=== PATIENT | male | born 1950 | race Caucasian/White ===

== ENCOUNTER 2022-02-07 10:23 | Observation (INO) ==
--- NOTE | 2022-01-10 11:35 | PAT Medication Instructions ---
Medication Instructions Date of Service January 10, 2022 Home Medications aspirin 81 mg tablet,delayed release 81 mg PO HS atorvastatin 40 mg tablet 40 mg PO QPM finasteride 5 mg tablet 5 mg PO QPM magnesium 250 mg tablet 250 mg PO Q2D metoprolol tartrate 25 mg tablet 25 mg PO QAM multivitamin 1 tab PO QAM omeprazole 20 mg capsule,delayed release 20 mg PO QAM ramipril 1.25 mg tablet 1.25 mg PO QAM tamsulosin 0.4 mg capsule 0.4 mg PO QAM DO NOT take the morning of surgery magnesium 250 mg tablet 250 mg PO Q2D multivitamin 1 tab PO QAM ramipril 1.25 mg tablet 1.25 mg PO QAM Take morning of surgery With a small sip of water, OTHERWISE NOTHING TO EAT OR DRINK AFTER MIDNIGHT: metoprolol tartrate 25 mg tablet 25 mg PO QAM omeprazole 20 mg capsule,delayed release 20 mg PO QAM tamsulosin 0.4 mg capsule 0.4 mg PO QAM Take evening before surgery aspirin 81 mg tablet,delayed release 81 mg PO HS (unless surgeon directs otherwise) atorvastatin 40 mg tablet 40 mg PO QPM finasteride 5 mg tablet 5 mg PO QPM Other Notes If you have any questions please call us at [phone] or [phone] or [phone] or [phone]
--- NOTE | 2022-01-14 13:11 | Anesthesiology Consultation ---
Date of Service January 14, 2022 Assessment & Plan (1) Encounter for pre-operative examination: Chart Review Chart Review: Acceptable Risk for Surgery (pending surgeon ordered PCP clearance and preop Covid testing results ) and Patient seen in Pre Admission Testing -Awaiting PCP clearance 01/20/22 (will send preop testing for PCP to review) Per PAT appt on 01/14/22, patient denies any recent travel or large group activit ies. No known Covid positive exposures or Covid related symptoms. No known Covid infection in the past 90 days. Pt is vaccinated for Covid. Preop Covid testing scheduled 02/05/22= will await results. Educated on importance of self quarantining, social distancing and wearing mask in public for the patient one week prior to surgery and after Covid testing done Patient last seen by cardiology 08/14/2021 = seen for follow-up on CAD. Patient with known history of CAD and cardiovascular risk factors. Over the past 12 months has been doing well clinically. No indication for invasive or noninvasive cardiac testing or procedures. Most recent assessment of LV systolic function was by echo done 2019. LV systolic function of the time was mild to moderately reduced with EF of 42%. No signs or symptoms of decompensated heart failure. Follow-up in 1 year. History Surgery Operation Date: 02/07/22 07:15 Proposed Procedures p Left Posterior Tibial Tendon Reconstruction, Flexor Digitorum Longus Tendon Transfer, - DO feliberto Magdaleno Medializing Calcaneal Osteotomy, Lateral Column Lengthening with Autograft, - DO feliberto Magdaleno Percutaneous Achilles Tendon Lengthening, - DO feliberto Magdaleno Iliac Crest Autograft [place] - Miguelito Petty DO Height/Weight Height: 5 ft 8 in Weight: 70.4 kg Allergies Allergy/AdvReac Type Severity Reaction Status Date / Time No Known Allergies Allergy Verified 01/09/22 14:32 Medications Home Medications Medication Instructions Recorded Confirmed Last Taken aspirin 81 mg tablet,delayed 81 mg PO HS 01/09/22 01/09/22 Unknown release atorvastatin 40 mg tablet 40 mg PO QPM 01/09/22 01/09/22 Unknown finasteride 5 mg tablet 5 mg PO QPM 01/09/22 01/09/22 Unknown magnesium 250 mg tablet 250 mg PO Q2D 01/09/22 01/09/22 Unknown metoprolol tartrate 25 mg tablet 25 mg PO QA 01/09/22 01/09/22 Unknown multivitamin 1 tab PO QA 01/09/22 01/09/22 Unknown omeprazole 20 mg capsule,delayed 20 mg PO QA 01/09/22 01/09/22 Unknown release ramipril 1.25 mg tablet 1.25 mg PO QAM 01/09/22 01/09/22 Unknown tamsulosin 0.4 mg capsule 0.4 mg PO QA 01/09/22 01/09/22 Unknown Past Medical History Medical History CAD (coronary artery disease) s/p CABG 3 vessel in 2019 Enlarged prostate GERD (gastroesophageal reflux disease) Well controlled and stable History of anesthesia reaction WITH SHOULDER SX ..DAY AFTER SURGERY...TONGUE FELT ENLARGED PT WAS TOLD THEY FELT THIS WAS DUE TO TOO MUCH ANESTHESIA ([facility] 2008) AFTER TRIPLE BYPASS - COULDN'T URINATE - CATHETER FOR MONTHS POST OP Ischemic cardiomyopathy Ischemic dilated CM due to CAD per cardio records Exercise / Class Metabolic Activity II 4-5 Yardwork/Stairs/Walk up hill (one filght of stiars - no chest pain or SOB ) Past Family History Family History Mother Family history of diabetes mellitus Past Surgical History Surgical History History of appendectomy History of cardiac cath 2019- [facility] ...TRIPLE BYPASS SURGERY History of heart bypass surgery SOB...ABNORMAL STRESS TEST, FAILED HEART CATH...TRIPLE BYPASS 2019 ( [facility] ) History of hernia surgery AN INFANT History of repair of right rotator cuff Past Anesthesia History No Hx of Anesthesia Complications (with exception to tongue swelling with shoulder surgery in 2008- no issues since that time; post op urination issues with CABG in 2019) and No Family Hx of Anesthesia Complications History of PONV No Hx of PONV and No Hx of Motion Sickness Social History Smoking Status: Never smoker Do You Dip or Chew Tobacco: No Hx Alcohol Use: Yes alcohol intake frequency: holidays/special occasions only substance use type: does not use Review of Systems Hx of snoring - hx of occ witnessed apnea. No hx of sleep study Patient denies chest pain, shortness of breath, dyspnea on exertion, cough, wheezing, palpitations. No hx of seizures, stroke. No hx of blood clots or blood transfusions Physical Exam Vital Signs VITALS BP 132/71 P 63 TEMP 97.7 SP02 96% RESP 16 Constitutional no acute distress ENMT Mouth: no TMJ clicking Thyromental Distance: > or= 3.5 Finger Breadths (3.5) Mallampati Class: II Missing molar Neck + limited neck extension (minimal ) Respiratory normal respiratory effort; no respiratory distress Auscultation: lungs clear to auscultation bilaterally; no wheezes Cardiovascular Rate/Rhythm: regular rate and regular rhythm Heart Sounds: no murmur Vessels: no carotid bruit Musculoskeletal Spine: no pain with cervical ROM Extremities: extremities normal to inspection Psychiatric Orientation: alert Lab Results Anesthesia Preop Results Results Anesthesia Widget: WBC 5.52 K/uL (4.8-10.8) 01/14/22 Hgb 15.0 g/dL (14.0-18.0) 01/14/22 Hct 44.6 % (42-52) 01/14/22 Plt 185 K/uL (130-400) 01/14/22 Na 138 mmol/L (136-145) 01/14/22 K 5.2 mmol/L (3.5-5.1) H 01/14/22 Cl 104 mmol/L (98-107) 01/14/22 CO2 29 mmol/L (21-32) 01/14/22 BUN 18 mg/dl (6-23) 01/14/22 Creat 0.87 mg/dl (0.6-1.4) 01/14/22 Glucose Level 95 mg/dl (70-99(Fasting)) 01/14/22 PT 10.0 Seconds (9.0-12.0) 01/14/22 PTT 27.8 Seconds (21.0-31.0) 01/14/22 INR 1.0 (0.9-1.1) 01/14/22 Urine Color Yellow 01/14/22 Urine Appearance Cloudy (Clear) A 01/14/22 Urine pH 5.5 (4.5-7.5) 01/14/22 Urine Specific Raymond 1.019 (1.000-1.030) 01/14/22 Urine Protein Negative (Negative) 01/14/22 Urine Glucose (UA) Negative (Negative) 01/14/22 Urine Ketones Trace (Negative) H 01/14/22 Urine Blood Trace (Negative) H 01/14/22 Urine Nitrite Positive (Negative) A 01/14/22 Urine Bilirubin Negative (Negative) 01/14/22 Urine Urobilinogen Negative (Negative) 01/14/22 Urine Leukocyte Esterase 3+ (Negative) H 01/14/22 Urine WBC (Auto) >30 /hpf (0-5) H 01/14/22 Urine RBC (Auto) 0-4 /hpf (0-4) 01/14/22 Urine Hyaline Casts (Auto) 1-5 /lpf (0-5) 01/14/22 Urine Epithelial Cells (Auto) 5-10 /lpf (0-5) H 01/14/22 Urine Bacteria (Auto) 4+ (Negative) H 01/14/22 Lab Comments: Surgeon's office informed of UA results Testing Electrocardiogram Date: 08/14/21 Sinus rhythm with occasional ectopic ventricular beat at 63 bpm. Old inferior infarct (EKG done at cardio appt - "No indication for invasive or noninvasive cardiac t esting or procedures" per 08/14/21 cardio note) Chest X-Ray Date: 01/14/22 Findings: + NAD FINDINGS: The lungs are hyperexpanded with apical predominant emphysematous changes. The heart is top normal in size. There are poststernotomy changes. Mild dextroscoliosis of the thoracic spine. The lungs are clear. No pleural effusions. No pneumothorax. Echocardiogram Date: 07/18/20 EF: 42% LV is moderately dilated with regional wall motion abnormalities. Basal inferior septal LV wall motion is hypokinetic. Mild inferior septal LV wall motion is hypokinetic. Mildly dilated left atrium. RV is normal in size and function. Mild to moderate MR. Cardiac Catheterization Date: 02/18/19 LM = angiographically normal LAD = proximal 80% tandem lesions, mid 70%, distal 0%. Proximal first diagonal, 99%. Left circumflex = mid 50% lesion. Obtuse marginals with no hemodynamically significant lesions RCA = dominant vessel with 100% occlusion. [id number] collaterals LVEF 40%. Basal inferior wall akinesis, mid to distal inferior wall hypokinesis. Impression: Multivessel CAD. Referred to cardiothoracic surgery for evaluation for CABG.
--- NOTE | 2022-02-06 08:38 | History & Physical Report ---
Date of Service February 06, 2022 Assessment & Plan (1) Posterior tibial tendon dysfunction, left: Plan: Schedule a left posterior tibialis tendon reconstruction with flexor digitorum longus tendon transfer, medializing calcaneal osteotomy, lateral column lengthening with autograft, left iliac crest bone graft harvest, percutaneous tendo Achilles lengthening for 02/07/2022. All potential risks, benefits, complications, alternatives, and rehab have been discussed with the patient and he wishes to proceed. Plan for aspirin 81 mg twice daily x4 weeks for postop DVT prophylaxis. (2) Acquired pes planovalgus of left foot: (3) Contracture of left Achilles tendon: History of Present Illness Chief Complaint: Left foot pain and deformity Primary Care Provider: NO PCP This is a patient with a long history of a left flatfoot deformity. He has been treated conservatively for posterior tibialis tendon dysfunction. However, he is failed conservative management and his pain and flatfoot deformity has worsened. He is now being set up for surgical treatment. Allergies Allergy/AdvReac Type Severity Reaction Status Date / Time No Known Allergies Allergy Verified 01/09/22 14:32 Home Medications Medication Instructions Recorded Confirmed Type aspirin 81 mg tablet,delayed 81 mg PO HS 01/09/22 01/09/22 History release atorvastatin 40 mg tablet 40 mg PO QPM 01/09/22 01/09/22 History finasteride 5 mg tablet 5 mg PO QPM 01/09/22 01/09/22 History magnesium 250 mg tablet 250 mg PO Q2D 01/09/22 01/09/22 History metoprolol tartrate 25 mg tablet 25 mg PO QAM 01/09/22 01/09/22 History multivitamin 1 tab PO QAM 01/09/22 01/09/22 History omeprazole 20 mg capsule,delayed 20 mg PO QAM 01/09/22 01/09/22 History release ramipril 1.25 mg tablet 1.25 mg PO QAM 01/09/22 01/09/22 History tamsulosin 0.4 mg capsule 0.4 mg PO QAM 01/09/22 01/09/22 History Past Med/Surg History Medical History CAD (coronary artery disease) s/p CABG 3 vessel in 2019 Enlarged prostate GERD (gastroesophageal reflux disease) Well controlled and stable History of anesthesia reaction WITH SHOULDER SX ..DAY AFTER SURGERY...TONGUE FELT ENLARGED PT WAS TOLD THEY FELT THIS WAS DUE TO TOO MUCH ANESTHESIA ([facility] 2008) AFTER TRIPLE BYPASS - COULDN'T URINATE - CATHETER FOR MONTHS POST OP Ischemic cardiomyopathy Ischemic dilated CM due to CAD per cardio records Surgical History History of appendectomy History of cardiac cath 2019- [facility] ...TRIPLE BYPASS SURGERY History of heart bypass surgery SOB...ABNORMAL STRESS TEST, FAILED HEART CATH...TRIPLE BYPASS 2019 ( [facility] ) History of hernia surgery AN INFANT History of repair of right rotator cuff Family History Mother Family history of diabetes mellitus Social History Smoking Status: Never smoker Hx Alcohol Use: Yes Preferred Language: Indonesian Communication Ability: Effective Risk Management Manager Required: No Beliefs That Will Affect Care: Mormonism Mormonism Beliefs: SABIANISM Current Living Situation: Spouse Feels Safe at Home: Yes Assistive Devices: None Physical Exam Constitutional: well developed and well nourished; no acute distress ENMT: external ear and nose normal, oropharynx normal Neck: trachea midline Respiratory: normal respiratory effort, lungs clear to auscultation Cardiovascular: Rate/Rhythm: regular rate and regular rhythm Gastrointestinal (Abdomen): normal bowel sounds, soft, nontender, no hepatosplenomegaly Musculoskeletal: Ankle: + deformity (Left pes planovalgus) and + joint line tenderness (ankle) (Left posterior tibialis tendon, sinus Tarsi); no skin erythema and no ecchymosis Skin: no rashes, warm and dry Trauma: no evidence of skin trauma Neurologic: normal touch/pain/proprioception Psychiatric: A+Ox3, euthymic affect Speech: normal rate/rhythm/volume of speech Lymphatic: no cervical or axillary lymphadenopathy
[~2022-02-07 10:23] MED LIST: BUPIVACAINE 0.25% 30 ML VIAL ONE; EPINEPHrine INJ 1 MG/ML AMP ONE; LACTATED RINGER'S 1,000 ML IV SCH; ceFAZolin 1000MG 1,000 MG/7.5 ML SYR IV SCH
--- NOTE | 2022-02-07 11:19 | History & Physical Bridge Note ---
Date of Service February 07, 2022 History & Physical Bridge Note I have examined the patient, reviewed the History & Physical and in the interval since the performance of the History & Physical I have noted the following changes of clinical significance: no changes noted
[2022-02-07] MEDS ORDERED: fentaNYL citrate 100 MCG/2 ML VIAL ONE ×3 (11:20→14:47)
[2022-02-07] MEDS ORDERED: MIDAZOLAM HCL 1 MG/ML 2ML VIAL ONE (11:20)
[2022-02-07] MEDS ORDERED: HYDROmorphone INJ 2 MG/ML SYR/VIAL IV PRN (11:24)
[2022-02-07] MEDS ORDERED: ATROPINE SULFATE 0.1 MG/ML 10ML SYR IV PRN (11:24)
[2022-02-07] MEDS ORDERED: ONDANSETRON INJ 2 MG/ML 2 ML VIAL IV PRN ×2 (11:24→16:34)
[2022-02-07] MEDS ORDERED: ePHEDrine sulfate 50 MG/ML AMP IV PRN (11:24)
[2022-02-07] MEDS ORDERED: fentaNYL citrate 100 MCG/2 ML VIAL IV PRN (11:24)
[2022-02-07] MEDS ORDERED: THROMBIN 5000 UNITS KIT ONE (11:59)
[2022-02-07] MEDS ORDERED: BUPIVACAINE 0.5 % 5 MG/1 ML MPF 30ML VIAL ONE (11:59)
[2022-02-07] MEDS ORDERED: EPINEPHrine INJ 1 MG/ML AMP ONE (11:59)
[2022-02-07] MEDS ORDERED: GELATIN SPONGE SZ 100 ONE (12:00)
[2022-02-07] MEDS ORDERED: THROMBIN FOR SOLN 20000 UNIT KIT ONE (12:03)
[2022-02-07] MEDS ORDERED: BUPIVACAINE/EPINEPHRINE 0.25% 1:200,000 30 ML VIAL ONE (12:03)
[2022-02-07] MEDS: ceFAZolin 330 MG/ML 1 GM VIAL ONE ×2 (12:29→14:52)
[2022-02-07] MEDS ORDERED: ePHEDrine sulfate 50 MG/ML AMP ONE (13:34)
[2022-02-07] MEDS ORDERED: DEXAMETHASONE SOD INJ 4 MG/ML VIAL ONE (13:35)
[2022-02-07] MEDS ORDERED: ceFAZolin 330 MG/ML 1 GM VIAL ONE (13:35)
[2022-02-07] MEDS ORDERED: ONDANSETRON INJ 2 MG/ML 2 ML VIAL ONE (13:35)
[2022-02-07] MEDS ORDERED: LIDOCAINE 2% 2 ML VIAL/AMP(20MG/ML) INFIL ONE (13:35)
[2022-02-07] MEDS ORDERED: PROPOFOL IV EMULSION 10 MG/ML 20 ML VIAL IV ONE (13:35)
[2022-02-07] MEDS ORDERED: MoRPHine SULFATE 2 MG/ML CARP ONE (13:42)
[2022-02-07] MEDS ORDERED: MoRPHine SULFATE 2 MG/ML CARP IV STA (13:44)
--- NOTE | 2022-02-07 14:06 | Fluoroscopy Report ---
FL foot LT 2V HISTORY: 71 years-old Male LT CALCANEAL OSTEOTOMY COMPARISON: None TECHNIQUE: 2 spot fluoroscopic images of the left foot were obtained utilizing 10.1 seconds fluorosco py time FINDINGS: Status post calcaneal osteotomy. Large posterior approach cannulated screw traverses the mid calcaneu s. Additionally, there is an anterior approach smaller cannulated screw which appears to traverse the anterior calcaneal process. Hardware appears intact. There are 3 posterior skin baldev. Expected po stoperative soft tissue swelling with deep tissue air. Osteoarthritis of the midfoot, hindfoot and ti biotalar joint. IMPRESSION: Fluoroscopic assistance as above. ACT 112: Negative or not required by law. The above report was generated using voice recognition software. It may contain grammatical, syntax o r spelling errors. Electronically signed by: Tian Huff M.D. 02/07/2022 2:04 PM
--- NOTE | 2022-02-07 15:28 | Post Operative Brief Note ---
Immediate Post Op Note v1 Date of Surgery February 07, 2022 Pre & Post Diagnosis Operation Date: 02/07/22 11:55 Pre-Op Diagnosis: (1) Posterior tibial tendon dysfunction, left: (2) Acquired pes planovalgus of left foot: (3) Contracture of left Achilles tendon: (4) posterior tibial tendon tear Post-Op Diagnosis: (1) Posterior tibial tendon dysfunction, left: (2) Acquired pes planovalgus of left foot: (3) Contracture of left Achilles tendon: (4) posterior tibial tendon tear (5) Spring ligament complex tear I identified the patient and participated in the time-out.: Yes Procedure Operation Date: 02/07/22 11:55 Actual Procedures p 1. Left Posterior Tibial Tendon Reconstruction with Flexor Digitorum Longus Tendon Transfer,(Left) - DO feliberto Magdaleno 2. Medializing Calcaneal Osteotomy with screw fixation 3. Lateral Column calcaneal lengthening with Autograft, - DO feliberto Magdaleno 4. Percutaneous Achilles Tendon Lengthening,(Left) - DO feliberto Magdaleno 5. Spring ligament complex repair 6. Iliac Crest Autograft [place](Left) - Miguelito Petty DO Surgeon Miguelito Petty DO Lathing Supervisor Master Amanda PA-C Estimated Blood Loss 10 Findings Consistent with Post-Op Diagnosis Anesthesia Type General Regional Complications none Disposition Accompanied Patient To Recovery: No
--- NOTE | 2022-02-07 16:21 | Operative Report (OR) ---
DATE OF PROCEDURE: 02/07/2022. PREOPERATIVE DIAGNOSES: 1. 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 2. Acquired painful pes planovalgus deformity. 3. Achilles tendon contracture. 4. Posterior tibial tendon tear. POSTOPERATIVE DIAGNOSES: 1. 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 2. Acquired painful pes planovalgus deformity. 3. Achilles tendon contracture. 4. Posterior tibial tendon tear. 5. Spring ligament complex tear. PROCEDURES PERFORMED: 1. Left posterior tibial tendon reconstruction with flexor digitorum longus tendon transfer. 2. Medialized and calcaneal osteotomy with screw fixation. 3. Lateral column calcaneal lengthening with autograft. 4. Percutaneous tendo-Achilles lengthening. 5. Spring ligament complex repair. 6. Left iliac crest autograft harvest. SURGEON: Miguelito Petty DO. [employer]: Master Amanda PA-C who was present for patient positioning, sterile prep and drape, management of retractors and instruments. He was present through the critical portions of the case including wound closure, application of sterile dressing and transport of the patient to recovery. ANESTHESIA: General, regional. SPECIMENS: None. DRAINS: None. COMPLICATIONS: None. BLOOD LOSS: 10 mL. PERTINENT HISTORY: This is a 71-year-old gentleman who had severe pain along the medial aspect of his hindfoot with a rapid loss of his medial arch over a period of about 6 months. He attempted and failed conservative management including physical therapy, shoewear modification, activity modification, use of a shoe insert, use of brace, anti-inflammatories, rest, and modification of activities. The patient had radiographs and an MRI, which demonstrated a posterior tibial tendon dysfunction grade II with a posterior tibial tendon tear and clinical examination demonstrating Achilles tendon contracture. The patient was scheduled for surgery as indicated. All potential risks, benefits, complications, alternatives, rehab potential for incomplete relief of symptoms, need for further surgery, DVT, PE, , persistent pain, swelling, scarring, weakness, neurovascular injury, wound complications, hardware failure, nonunion, malunion, bone fracture were discussed with the patient. The patient decided to proceed with the procedure as indicated. DESCRIPTION OF PROCEDURE: The patient was taken to the operative suite. The consent was reviewed and surgical site was identified. The patient had undergone a general, regional anesthetic and then transferred to the Operating Room table. Tourniquet was placed high in the left thigh over cast padding. Left iliac crest and left lower extremity were then sterilely prepped and draped in usual fashion. The left lower extremity was then elevated and exsanguinated with Esmarch bandage, tourniquet inflated to 350 mmHg. Next, left foot was held in dorsiflexion. An 11 blade scalpel was used to perform a three part percutaneous tendo Achilles lengthening and then the small stab incisions were then closed with a skin stapler. Next, a 15 blade scalpel was used to make an incision in oblique fashion on the lateral aspect of the left calcaneus. The incision was deepened to subcutaneous tissue. Meticulous hemostasis with electrocautery. Full thickness flaps were developed. Next, periosteum was elevated with small periosteal elevator. Hohmann retractors were placed and a sagittal saw was used to perform the osteotomy in the posterior aspect of the calcaneus. Tuberosity was then shifted medially and then stabilized with a guide pin from the 7.3 mm cannulated screw set under fluoroscopic control. Next, a short thread 7.3 mm cannulated screw of appropriate length was then placed over the guide pin and then used to compress the osteotomy under fluoroscopic control. Next, the guide pin was removed. The wound was irrigated with sterile Normal Saline and the dermis was closed using buried 3-0 Vicryl sutures and the skin was closed using 4-0 Nylon. Next, a 15 blade scalpel incision was made over the anterior process of the calcaneus and lateral calcaneus, the incision deepened through subcutaneous tissue, meticulous hemostasis with electrocautery. The extensor digitorum brevis was identified, incised and then elevated both superiorly and inferiorly. Peroneal tendon sheath was elevated and Hohmann retractors were placed in the sinus tarsi and then the inferior aspect of the calcaneus. A sagittal saw was used to make an osteotomy approximately 1.5 cm proximal to the calcaneal cuboid joint. Smooth osteotomes were placed into the osteotomies to open the osteotomy site and then a cervical lamina obstetric anaesthetist was placed in the opening. The opening of appropriate width was then measured and the cervical lamina obstetric anaesthetist was then removed from the osteotomy and a moist lap was placed over the foot. Next, after injection of the left iliac crest with approximately 15 cc of 0.5% Marcaine with Epinephrine a 15 blade scalpel incision was made over the iliac crest approximately 1 cm proximal to the ASIS. This was deepened to subcutaneous tissue with electrocautery down to the level of the fascia. Fascia was incised in line with the skin incision and then the iliac crest was clearly visualized, soft tissue and fascia was elevated medially and laterally. Small Matias retractors were placed in the inner and outer table of the iliac crest. It was irrigated with sterile Normal Saline. Appropriate length of bone wedge was measured and marked with electrocautery and then a sagittal saw was used to resect the appropriate width trapezoidal tricortical graft from the pelvis. Next, after irrigation and suction the graft was then placed on the back table and a small amount of cancellous graft was excised from the iliac crest. The wound was then finally irrigated with Sterile Normal Saline. The defect in the iliac crest was then packed with Gelfoam and Thrombin. This was then closed with the fascia overlying the iliac crest with #1 Vicryl sutures. Next, this was injected with 1 cc of Duramorph and 5 cc of 0.5% Marcaine with Epinephrine. The dermis was closed using buried interrupted 2-0 Vicryl sutures and the skin was closed using skin baldev. Approximately 5 more cc of 0.5% Marcaine with Epinephrine was injected. No oozing or bleeding was encountered and a sterile compressive dry dressing was applied overwrapped with an OpSite. Next, the graft was then placed in the lateral osteotomy of the foot to lengthen the lateral column using a cervical lamina obstetric anaesthetist to span the osteotomy. After the graft was tamped in place with a bone tamp and mallet the cervical lamina obstetric anaesthetist was removed. Next, the adjacent bone graft obtained from the iliac crest was then packed around the tricortical graft and then the graft was then stabilized with a single fully threaded 4.0 mm small fragment screw placed under lag technique compressing the graft in place. Next, the 2-0 Vicryl suture was used to close the extensor digitorum brevis and the dermis was closed using buried interrupted 3-0 Vicryl. Skin was closed using 4-0 Nylon sutures. Next, a 15 blade scalpel was used to make a long curvilinear incision along the medial aspect of the hind foot overlying the posterior tibial tendon. The incision was deepened to subcutaneous tissue. Meticulous hemostasis achieved with electrocautery. The incision was extended to the first metatarsal head. Next, after incision of the lacinate ligament the flexor retinaculum was encountered. This was incised in line with skin incision overlying the posterior tibial tendon. The posterior tibial tendon was clearly visualized. Tenotomy scissors were then used to complete the release of the flexor retinaculum and the posterior tibial tendon was then elevated sharply with combination of electrocautery and 15 blade scalpel from its insertion on the navicular. The damaged portion of the tendon distally was then resected and then a whip stitch was placed with #2 FiberWire suture in the distal aspect of the posterior tibial tendon. Next, dissection was continued in the mid foot in the interval between the first metatarsal and the abductor hallucis. A Carlos retractor was placed in the wound and then after careful dissection the master knot of Roby was released and the flexor digitorum longus and flexor hallucis longus were clearly visualized distally. Tenodesis was performed with interrupted #2 FiberWire suture with toes held in neutral alignment in line with the metatarsals. Next, a whip stitch was placed in the distal aspect of the FDL tendon and then the FDL was then released distally to allow it to be retracted proximally posterior to the medial malleolus after a small cut was made in the FDL sheath posterior to the medial malleolus. After the tendon was withdrawn posteriorly, the soft tissues were elevated from the medial navicular and a 4.5 mm drill hole was made in the medial navicular. The spring ligament along the medial aspect of the talonavicular joint and the medial hindfoot was noted to be completely ruptured and this was then debrided with a 15 blade scalpel and then reapproximated with buried interrupted #2 FiberWire suture. A Irwin suture passer was used to transfer the tendon from the plantar to the dorsal aspect of the navicular. It was then sutured back down to itself using a sharp tendon passer and a Pulvertaft weave technique with #2 fiber wire suture. Several passes were made and then this was then incorporated into the posterior tibial tendon. Next, free needle was used to tie the ends of the posterior tibial tendon and FDL tendon into the adjacent tendons. Sutures were then tied and cut. The wound was irrigated with Sterile Normal Saline. Deep drain was placed, a #10 Samoan single Hemovac drain medially and then the flexor sheath was closed using interrupted 2-0 Vicryl sutures. The interval between the first metatarsal and the abductors were closed using interrupted 2-0 Vicryl sutures. The dermis was closed using buried interrupted 3-0 Vicryl suture and skin closed with 4-0 Nylon. A sterile compressive Ming Meneses plaster splint was applied and wrapped with an Gavino wrap with the foot held in slight equinus and inversion. The tourniquet was released, patient awakened and taken to recovery in stable condition. Job ID: [id number] [facility]ITAL[facility]i
--- NOTE | 2022-02-07 16:30 | Anesthesiology Progress Note ---
Date of Service February 07, 2022 Anesthesia Post Procedure Vital Signs Vital Signs: Temp Pulse Resp BP Pulse Ox 02/07/22 16:15 36.6 C 70 16 127/62 96 02/07/22 16:05 71 18 120/78 95 02/07/22 15:55 71 18 125/61 95 02/07/22 15:45 67 18 118/60 98 02/07/22 15:35 71 18 118/60 98 02/07/22 15:28 36.6 C 67 18 117/56 L 98 02/07/22 10:46 36.4 C L 59 L 18 144/78 H 97 Transfer of Care Handoff Completed per policy Notes Mental Status: alert / awake / arousable Patient Amnestic to Procedure: Yes Nausea / Vomiting: adequately controlled Pain: adequately controlled Airway Patency, RR, SpO2: stable & adequate BP & HR: stable & adequate Hydration State: stable & adequate Anesthetic Complications: no major complications apparent
[2022-02-07] MEDS ORDERED: HYDROmorphone INJ 0.5 MG/0.5 ML SYR IV PRN (16:34)
[2022-02-07] MEDS ORDERED: NALOXONE HCL 0.4 MG/1 ML VIAL/CARP IV PRN (16:34)
[2022-02-07] MEDS ORDERED: oxyCODONE HCL IR 5 MG TAB (IMMEDIATE RELEASE) PO PRN (16:34)
[2022-02-07] MEDS ORDERED: bisacodyL 10 MG SUPP PR PRN (16:34)
[2022-02-07] MEDS ORDERED: MAGNESIUM HYDROXIDE SUSP 30 ML UDC PO PRN (16:34)
[2022-02-07] MEDS: SODIUM CHLORIDE 0.9% 1000ML 1,000 ML IV SCH (16:43)
[2022-02-07] MEDS ORDERED: MAGNESIUM OXIDE 400 MG TAB PO SCH (17:00)
[2022-02-07] MEDS: ASPIRIN 81 MG ECTAB PO SCH (20:46)
[2022-02-07] MEDS: DOCUSATE SODIUM 100 MG CAP PO SCH (20:46)
[2022-02-07] MEDS: ceFAZolin 1000MG 1,000 MG/7.5 ML SYR IV SCH (20:52)
[2022-02-07] MEDS ORDERED: SENNA 8.6 MG TAB PO SCH (21:00)
[2022-02-07] MEDS ORDERED: ATORVASTATIN 40 MG TAB PO SCH (21:00)
[2022-02-07] MEDS ORDERED: FINASTERIDE 5 MG TAB PO SCH (21:00)
[2022-02-07] MEDS: ACETAMINOPHEN 500 MG TAB PO SCH (21:00)
[2022-02-08] MEDS: SODIUM CHLORIDE 0.9% 1000ML 1,000 ML IV SCH (03:54)
[2022-02-08] MEDS: ACETAMINOPHEN 500 MG TAB PO SCH ×2 (06:17→14:10)
[2022-02-08] MEDS: ceFAZolin 1000MG 1,000 MG/7.5 ML SYR IV SCH (06:17)
[2022-02-08 08:12] LABS: Hematocrit (blood only) 36.6 % (42-52); Hemoglobin 12.8 g/dL (14.0-18.0); Mean Corpuscular Hemoglobin 31.6 pg (25-34); Mean Corpuscular Volume 90.4 fL (80-100); Mean Platelet Volume 9.7 fL (7.4-10.4); Platelet Count 171 K/uL (130-400); RDW Coefficient of Variation 13.2 % (11.5-14.5); RDW Standard Deviation 43.4 fL (36.4-46.3); Red Blood Count 4.05 M/uL (4.7-6.1); White Blood Count 12.91 K/uL (4.8-10.8)
[2022-02-08] MEDS: DOCUSATE SODIUM 100 MG CAP PO SCH (08:20)
[2022-02-08] MEDS: ASPIRIN 81 MG ECTAB PO SCH (08:20)
[2022-02-08 08:29] LABS: BUN Creatinine Ratio 14.3 (10-20); Calcium 8.2 mg/dl (8.5-10.1); Creatinine Clr Calc Pharmacy 68.8 ml/min; Est GFR (African American) 102.8 ml/min; Est GFR (Non-African American) 88.7 ml/min; Potassium 3.9 mmol/L (3.5-5.1)
--- NOTE | 2022-02-08 08:53 | Orthopedic Progress Note ---
Date of Service February 08, 2022 Assessment & Plan (1) Posterior tibial tendon dysfunction, left: Plan: Postop day #1 1. Left posterior tibial tendon reconstruction with flexor digitorum longus tendon transfer. 2. Medialized and calcaneal osteotomy with screw fixation. 3. Lateral column calcaneal lengthening with autograft. 4. Percutaneous tendo-Achilles lengthening. 5. Spring ligament complex repair. 6. Left iliac crest autograft harvest. -PT/OT: Nonweightbearing left lower extremity -Pain management: As written -DVT prophylaxis: Aspirin 81 mg twice daily for 1 month postop. -A.m. labs: Hemoglobin 12.4 this morning. Mild leukocytosis likely reactive. Currently asymptomatic. -Discharge planning: Plan on discharge home today as long as he does well with therapy. 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 (2) Acquired pes planovalgus of left foot: (3) Contracture of left Achilles tendon: Admission and Anticipated Discharge Date Admission Date: February 07, 2022 Supervising Physician Co-Signing Physician Notes Patient seen and examined. Agree with DRE Hebert's note as above. Pain well controlled. Plan for discharge home today. Subjective Patient is postop day 1 left hindfoot reconstruction. He is doing well, pain is controlled. Blocks are to wear off earlier this morning and is having some increased pain. Patient has no other complaints. Denies any chest pain, shortness of breath, dizziness, headaches, nausea/vomiting/diarrhea. Review of Systems Review of Systems: All systems reviewed & are unremarkable except as noted in Subjective Physical Exam Physical Exam: Left leg: Dressings and splint are clean dry and intact. Toes are mobile. No calf tenderness. Distally neurovascular status and sensation are intact. Constitutional: WD/WN, vitals as above Results & Data ([facility]) Vital Signs (Past 12 Hours) Vital Signs Temp Pulse Pulse Resp BP Pulse Ox 02/08/22 07:15 36.9 C 82 18 115/60 96 02/08/22 03:26 37.0 C 78 16 107/66 96 02/07/22 23:02 36.8 C 82 18 128/71 96 Laboratory Results Lab Results 02/07/22 02/08/22 02/08/22 Range/Units Unknown 07:55 07:55 WBC 12.91 H (4.8-10.8) K/uL RBC 4.05 L (4.7-6.1) M/uL Hgb 12.8 L (14.0-18.0) g/dL Hct 36.6 L (42-52) % MCV 90.4 (80-100) fL MCH 31.6 (25-34) pg MCHC 35.0 (32-36) g/dL RDW Std Deviation 43.4 (36.4-46.3) fL RDW Coeff of Jes 13.2 (11.5-14.5) % Plt Count 171 (130-400) K/uL MPV 9.7 (7.4-10.4) fL Sodium 136 (136-145) mmol/L Potassium 3.9 (3.5-5.1) mmol/L Chloride 104 (98-107) mmol/L Carbon Dioxide 28 (21-32) mmol/L Anion Gap 4 (3-11) BUN 12 (6-23) mg/dl Creatinine 0.84 (0.6-1.4) mg/dl Est Cr Clr Drug Dosing 68.8 ml/min Est GFR ( Amer) 102.8 ml/min Est GFR (Non-Af Amer) 88.7 ml/min BUN/Creatinine Ratio 14.3 (10-20) Glucose 99 (70-99(Fasting)) mg/dl Calcium 8.2 L (8.5-10.1) mg/dl SARS-CoV-2, RNA, NAAT NEGATIVE (NEGATIVE)
[2022-02-08] MEDS ORDERED: ENALAPRIL MALEATE 5 MG TAB PO SCH (09:00)
[2022-02-08] MEDS ORDERED: PANTOprazole 40 MG TAB PO SCH (09:00)
[2022-02-08] MEDS ORDERED: MULTIVITAMIN TAB PO SCH ×2 (09:00)
[2022-02-08] MEDS ORDERED: TAMSULOSIN HCL 0.4 MG CAP PO SCH (09:00)
[2022-02-08] MEDS ORDERED: METOPROLOL TARTRATE 25 MG TAB PO SCH (09:00)
--- NOTE | 2022-02-11 08:53 | Discharge Summary ---
Date of Service February 11, 2022 Admission HPI Per Admitting Provider This is a patient with a long history of a left flatfoot deformity. He has been treated conservatively for posterior tibialis tendon dysfunction. However, he is failed conservative management and his pain and flatfoot deformity has worsened. He is now being set up for surgical treatment. Admission Exam Per Admitting Provider Physical Exam Constitutional: well developed and well nourished; no acute distress ENMT: external ear and nose normal, oropharynx normal Neck: trachea midline Respiratory: normal respiratory effort, lungs clear to auscultation Cardiovascular:L Rate/Rhythm: regular rate and regular rhythm Gastrointestinal (Abdomen): normal bowel sounds, soft, nontender, no hepatosplenomegaly Musculoskeletal: Ankle: + deformity (Left pes planovalgus) and + joint line tenderness (ankle) (Left posterior tibialis tendon, sinus Tarsi); no skin erythema and no ecchymosis Skin: no rashes, warm and dry Trauma: no evidence of skin trauma Neurologic: normal touch/pain/proprioception Psychiatric: A+Ox3, euthymic affect Speech: normal rate/rhythm/volume of speech Lymphatic: no cervical or axillary lymphadenopathy Principal Diagnosis 1. 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 2. Acquired painful pes planovalgus deformity. 3. Achilles tendon contracture. 4. Posterior tibial tendon tear. 5. Spring ligament complex tear. Discharge Data Allergies Allergy/AdvReac Type Severity Reaction Status Date / Time No Known Allergies Allergy Verified 02/07/22 10:53 Procedures Performed Operation Date: 02/07/22 11:55 Actual Procedures p Left Posterior Tibial Tendon Reconstruction, Flexor Digitorum Longus Tendon Transfer, Spring Tendon Repair(Left) - Miguelito Petty DO s Medializing Calcaneal Osteotomy, Lateral Column Lengthening with Autograft, - Miguelito Petty DO s Percutaneous Achilles Tendon Lengthening,(Left) - DO feliberto Magdaleno Iliac Crest Autograft Varney(Left) - Miguelito Petty DO Ordered Studies 02/07/22 05:00 US - OR guided needle placemen Routine 02/07/22 11:55 FL foot LT 2V Routine Hospital Course (1) Posterior tibial tendon dysfunction, left: Assessment & Plan (1) Posterior tibial tendon dysfunction, left: Plan: Postop day #1 1. Left posterior tibial tendon reconstruction with flexor digitorum longus tendon transfer. 2. Medialized and calcaneal osteotomy with screw fixation. 3. Lateral column calcaneal lengthening with autograft. 4. Percutaneous tendo-Achilles lengthening. 5. Spring ligament complex repair. 6. Left iliac crest autograft harvest. -PT/OT: Nonweightbearing left lower extremity -Pain management: As written -DVT prophylaxis: Aspirin 81 mg twice daily for 1 month postop. -A.m. labs: Hemoglobin 12.4 this morning. Mild leukocytosis likely reactive. Currently asymptomatic. -Discharge planning: Plan on discharge home today as long as he does well with therapy. 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 (2) Acquired pes planovalgus of left foot: (3) Contracture of left Achilles tendon: Admission and Anticipated Discharge Date Admission Date: February 07, 2022 Supervising Physician Co-Signing Physician Notes Patient seen and examined. Agree with DRE Hebert's note as above. Pain well controlled. Plan for discharge home today. Subjective Patient is postop day 1 left hindfoot reconstruction. He is doing well, pain is controlled. Blocks are to wear off earlier this morning and is having some increased pain. Patient has no other complaints. Denies any chest pain, shortness of breath, dizziness, headaches, nausea/vomiting/diarrhea. Review of Systems Review of Systems: All systems reviewed & are unremarkable except as noted in Subjective Physical Exam Physical Exam: Left leg: Dressings and splint are clean dry and intact. Toes are mobile. No calf tenderness. Distally neurovascular status and sensation are intact. Constitutional: WD/WN, vitals as above Results & Data ([facility]) Vital Signs (Past 12 Hours) Vital Signs Temp Pulse Pulse Resp BP Pulse Ox 02/08/22 07:15 36.9 C 82 18 115/60 96 02/08/22 03:26 37.0 C 78 16 107/66 96 02/07/22 23:02 36.8 C 82 18 128/71 96 Laboratory Results Lab Results 02/07/22 02/08/22 02/08/22 Range/Units Unknown 07:55 07:55 WBC 12.91 H (4.8-10.8) K/uL RBC 4.05 L (4.7-6.1) M/uL Hgb 12.8 L (14.0-18.0) g/dL Hct 36.6 L (42-52) % MCV 90.4 (80-100) fL MCH 31.6 (25-34) pg MCHC 35.0 (32-36) g/dL RDW Std Deviation 43.4 (36.4-46.3) fL RDW Coeff of Jes 13.2 (11.5-14.5) % Plt Count 171 (130-400) K/uL MPV 9.7 (7.4-10.4) fL Sodium 136 (136-145) mmol/L Potassium 3.9 (3.5-5.1) mmol/L Chloride 104 (98-107) mmol/L Carbon Dioxide 28 (21-32) mmol/L Anion Gap 4 (3-11) BUN 12 (6-23) mg/dl Creatinine 0.84 (0.6-1.4) mg/dl Est Cr Clr Drug Dosing 68.8 ml/min Est GFR ( Amer) 102.8 ml/min Est GFR (Non-Af Amer) 88.7 ml/min BUN/Creatinine Ratio 14.3 (10-20) Glucose 99 (70-99(Fasting)) mg/dl Calcium 8.2 L (8.5-10.1) mg/dl SARS-CoV-2, RNA, NAAT NEGATIVE (NEGATIVE) Total Time Total Time Spent Total Time Spent (In Minutes): 5 Discharge Plan Discharge Items Patient Disposition: Home - Self-Care Reason For Visit: Left Posteior Tibial Tendon Dysfunction Discharge Diagnosis: Left posterior tibial tendon dysfunction Activity: Per Instructions section Non-emergency contact: Surgeon Call non-emergency contact if: your pain is not controlled, your pain is worsening and your temperature is above 101 Follow-up/Referrals: PCP,NO [Primary Care Provider] - Diet: Regular Addtl Attending Provider Instructions: ACTIVITY RECOMMENDATIONS: Limitations: No weight bearing to affected limb at all times. SPECIAL CARE INSTRUCTIONS: * Take Aspirin 81 mg every 12 hours for 4 weeks for postoperative blood clot prophylaxis. * Some drainage onto the dressing is normal and is no cause for alarm. * Some swelling is natural especially after walking. * When resting, keep your foot elevated above the level of your heart. * Call [facility] if you notice: -Increased drainage -Fever over 101 degrees F -Severe constant pain BANDAGE: * Leave bandage/cast in place unless otherwise directed. * Keep bandage/cast dry at all times. FOLLOW UP VISIT WITH DR. PETTY If appointment is not already scheduled: Please call [facility] after you get home today to schedule a follow-up appointment for [address] Petty at . Pending Studies at Discharge: No Stand-Alone Forms: My [facility] [employer], Smoking Cessation Medications and DC Order Prescriptions: New acetaminophen [Tylenol Extra Strength] 500 mg Tablet 1,000 mg PO Q8 Qty: 60 RF: 0 aspirin 81 mg Tablet,Delayed Release (Dr/Ec) 81 mg PO BID Qty: 60 RF: 0 oxycodone 5 mg Tablet 5 - 10 mg PO .Q4h-6h MDD 6 PRN (Reason: pain) Qty: 30 RF: 0 Continued atorvastatin 40 mg Tablet 40 mg PO QPM RF: 0 tamsulosin 0.4 mg Capsule 0.4 mg PO QAM RF: 0 omeprazole 20 mg Capsule,Delayed Release(Dr/Ec) 20 mg PO QAM RF: 0 magnesium 250 mg Tablet 250 mg PO Q2D RF: 0 finasteride 5 mg Tablet 5 mg PO QPM RF: 0 metoprolol tartrate 25 mg Tablet 25 mg PO QAM RF: 0 multivitamin Tablet,Chewable 1 tab PO QAM RF: 0 ramipril 1.25 mg Tablet 1.25 mg PO QAM RF: 0 Discontinued aspirin [Aspir-81] 81 mg Tablet,Delayed Release (Dr/Ec) 81 mg PO HS RF: 0 Discharge Orders: Discharge Order (Routine); Ordered 02/08/22 Ordered By: Dedrick Hebert Admission Data Admit Date/Time: 02/07/22 15:39 Attending Provider: Miguelito Petty Admit Provider: Miguelito Petty Primary Care Provider: PCP,NO Other Interventions: Discharge Summary Assessment (RN) Last Done: 02/08/22 12:51
== END 2022-02-08 15:46 | disposition home or self-care (01) ==
LOC: ASU 10:23 → 3N 15:39 → INTOOBSV 15:39